=== PATIENT | female | born 1945 | race Hispanic/Latino ===

== ENCOUNTER → 2019-02-09 | Outpatient (CLI) | payer MEDICARE | END | disposition home or self-care (01) | LOC: OIH 12:38 | PROVIDERS: ATTEND Internal Medicine | DX: M85.872 Other specified disorders of bone density and structure, left ankle and foot (principal); M85.871 Other specified disorders of bone density and structure, right ankle and foot; M13.842 Other specified arthritis, left hand; M13.841 Other specified arthritis, right hand; M06.4 Inflammatory polyarthropathy | CPT/HCPCS: 73130; 73560; 73630 ==